=== PATIENT | male | born 1980 | race American Indian/Alaskan Native ===

== ENCOUNTER 2020-04-25 20:41 | Emergency (ER) | payer SELFPAY ==
[2020-04-25] MEDS ORDERED: DEXTROSE 50% IN WATER (25GM) 50 ML SYRINGE IV ONE ×4 (21:18→23:47)
[2020-04-25 21:38] LABS: Basophils # (Auto) 0.1 K/mm3 (0.0-0.1); Basophils % (Auto) 0.8 % (0.0-1.8); Eosinophils # (Auto) 0.3 K/mm3 (0.0-0.4); Eosinophils % (Auto) 1.8 % (0.0-4.3); Hematocrit 32.2 % (35.5-45.6); Hemoglobin 10.1 gm/dl (11.8-15.2); Lymphocytes % (Auto) 6.8 % (13.4-35.0); Mean Corpuscular HGB Conc 31 % (32-34); Mean Corpuscular Volume 91 fl (84-94); Monocytes # (Auto) 0.7 K/mm3 (0.0-0.8); Monocytes % (Auto) 5.2 % (0.0-7.3); Platelet Count 263 K/mm3 (140-440); Red Blood Count 3.54 M/mm3 (3.65-5.03)
[2020-04-25 21:44] LABS: Red Cell Distribution Width 23.5 % (13.2-15.2)
[2020-04-25 21:55] LABS: BUN/Creatinine Ratio 17; Blood Urea Nitrogen 22 mg/dL (9-20); Calcium 8.6 mg/dL (8.4-10.2); Hemolysis Index 19
[2020-04-25] MEDS ORDERED: D5W/0.9% NACL 1,000 ML IV SCH (22:00)
[2020-04-25] MEDS ORDERED: HYDROCORTISONE SOD SUCC 100 MG/2 ML VIAL IV ONE (22:29)
--- NOTE | 2020-04-25 22:35 | Emergency Department Report ---
ED General Adult HPI - General Chief complaint: Hypoglycemia Stated complaint: LOW BLOOD SUGAR Time Seen by Provider: 04/25/20 20:52 Source: EMS Mode of arrival: Stretcher Limitations: Altered Mental Status - History of Present Illness Initial comments: Patient is a 39-year-old F Egyptian male who is presenting with altered mental status low blood glucose. His blood glucose was noted to be 20 when paramedics arrived. Paramedics state that the patient was rambling incoherently and the family was poor historian but states that the patient was recently at [facility]. States he has some type of pancreatic tumor. Was unknown the patient's mental status baseline. Patient received D50 prior to arrival was brought the sugar up to 145. On arrival the patient was still babbling incoherently. In review of the patient's history by talking with a physician at [facility] the patient was there on April 03, 2020. He has a history of alcohol abuse diabetes but was diagnosed with adrenal insufficiency and a mass in the mesentery. 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 Patient left the hospital because he stated he was tired of waiting for results. Apparently the formal pathology report had not been resulted. Patient had numerous episodes of hypoglycemia and also acute kidney injury and adrenal insufficiency. - Related Data Allergies Allergy/AdvReac Type Severity Reaction Status Date / Time No Known Allergies Allergy Verified 04/25/20 21:50 ED Review of Systems ROS: Stated complaint: LOW BLOOD SUGAR Other details as noted in HPI Comment: Unobtainable due to pts medical conditions ED Past Medical Hx - Past Medical History Hx Diabetes: Yes Additional medical history: pancreatic mass - Surgical History Additional Surgical History: unable to assess - Social History Smoking Status: Unknown if ever smoked ED Physical Exam - General Limitations: Altered Mental Status General appearance: alert, other (Patient speaking clearly but answering things inappropriately) - Head Head exam: Present: atraumatic, normocephalic - Eye Eye exam: Present: normal appearance, PERRL, EOMI - ENT ENT exam: Present: mucous membranes moist - Neck Neck exam: Present: normal inspection - Respiratory Respiratory exam: Present: normal lung sounds bilaterally. Absent: respiratory distress, wheezes, rales, rhonchi - Cardiovascular Cardiovascular Exam: Present: regular rate, normal rhythm, normal heart sounds. Absent: systolic murmur, diastolic murmur, rubs, gallop - GI/Abdominal GI/Abdominal exam: Present: soft, normal bowel sounds. Absent: distended, tenderness, guarding - Rectal Rectal exam: Present: deferred - Extremities Exam Extremities exam: Present: normal inspection - Back Exam Back exam: Present: normal inspection - Neurological Exam Neurological exam: Present: alert, altered. Absent: motor sensory deficit - Psychiatric Psychiatric exam: Present: normal affect, normal mood - Skin Skin exam: Present: warm, dry, intact, normal color. Absent: rash ED Course Vital Signs 04/25/20 20:54 Temperature 98.2 F Pulse Rate 97 H Respiratory 18 Rate Blood Pressure 100/57 O2 Sat by Pulse 100 Oximetry ED Medical Decision Making - Lab Data Result diagrams: 04/25/20 21:15 04/25/20 21:15 Lab Results 04/25/20 04/25/20 04/25/20 Range/Units 21:15 21:15 21:18 WBC 14.1 H (4.5-11.0) K/mm3 RBC 3.54 L (3.65-5.03) M/mm3 Hgb 10.1 L (11.8-15.2) gm/dl Hct 32.2 L (35.5-45.6) % MCV 91 (84-94) fl MCH 29 (28-32) pg MCHC 31 L (32-34) % RDW 23.5 H (13.2-15.2) % Plt Count 263 (140-440) K/mm3 Lymph % (Auto) 6.8 L (13.4-35.0) % [place] % (Auto) 5.2 (0.0-7.3) % Eos % (Auto) 1.8 (0.0-4.3) % Baso % (Auto) 0.8 (0.0-1.8) % Lymph # (Auto) 1.0 L (1.2-5.4) K/mm3 [place] # (Auto) 0.7 (0.0-0.8) K/mm3 Eos # (Auto) 0.3 (0.0-0.4) K/mm3 Baso # (Auto) 0.1 (0.0-0.1) K/mm3 Seg Neutrophils % 85.4 H (40.0-70.0) % Seg Neutrophils # 12.0 H (1.8-7.7) K/mm3 Sodium 144 (137-145) mmol/L Potassium 3.2 L (3.6-5.0) mmol/L Chloride 115.6 H (98-107) mmol/L Carbon Dioxide 16 L (22-30) mmol/L Anion Gap 16 mmol/L BUN 22 H (9-20) mg/dL Creatinine 1.3 (0.8-1.3) mg/dL Estimated GFR > 60 ml/min BUN/Creatinine Ratio 17 % Glucose 52 L (75-100) mg/dL POC Glucose 45 L (70-105) mg/dL Calcium 8.6 (8.4-10.2) mg/dL 04/25/20 Range/Units 22:28 WBC (4.5-11.0) K/mm3 RBC (3.65-5.03) M/mm3 Hgb (11.8-15.2) gm/dl Hct (35.5-45.6) % MCV (84-94) fl MCH (28-32) pg MCHC (32-34) % RDW (13.2-15.2) % Plt Count (140-440) K/mm3 Lymph % (Auto) (13.4-35.0) % [place] % (Auto) (0.0-7.3) % Eos % (Auto) (0.0-4.3) % Baso % (Auto) (0.0-1.8) % Lymph # (Auto) (1.2-5.4) K/mm3 [place] # (Auto) (0.0-0.8) K/mm3 Eos # (Auto) (0.0-0.4) K/mm3 Baso # (Auto) (0.0-0.1) K/mm3 Seg Neutrophils % (40.0-70.0) % Seg Neutrophils # (1.8-7.7) K/mm3 Sodium (137-145) mmol/L Potassium (3.6-5.0) mmol/L Chloride (98-107) mmol/L Carbon Dioxide (22-30) mmol/L Anion Gap mmol/L BUN (9-20) mg/dL Creatinine (0.8-1.3) mg/dL Estimated GFR ml/min BUN/Creatinine Ratio % Glucose (75-100) mg/dL POC Glucose 50 L (70-105) mg/dL Calcium (8.4-10.2) mg/dL - Medical Decision Making Patient is required 3 doses of D50 between prior to the hospital and while here in our emergency department. Spoke with the hospitalist at [facility] and they states that they do also agree to be prudent to transfer the patient back to their facility to continue with his evaluation. Hospitalist is Dr. Horta. Patient be started on a D5 drip to try to regulate the patient is blood glucose. Patient given a dose of Solu-Cortef to help with the adrenal insufficiency. Critical Care Time: Yes (30) Critical care attestation.: If time is entered above; I have spent that time in minutes in the direct care of this critically ill patient, excluding procedure time. ED Disposition Clinical Impression: Hypoglycemia, Insulinoma, Adrenal insufficiency Disposition: DC/TX-70 ANOTHER TYPE HLTHCARE Is pt being admited?: No Does the pt Need Aspirin: No Condition: Stable Referrals: PRIMARY CARE, [Primary Care Provider] - 3-5 Days Time of Disposition: 22:36
[2020-04-25 23:48] VITALS: BP 97/71
[2020-04-26] MEDS ORDERED: DEXTROSE 50% IN WATER (25GM) 50 ML SYRINGE IV ONE (01:34)
== END 2020-04-26 01:50 | disposition other institution (70) ==
LOC: ED 20:41
DX: E16.2 Hypoglycemia, unspecified (principal); D13.7 Benign neoplasm of endocrine pancreas; E27.40 Unspecified adrenocortical insufficiency
CPT/HCPCS: 36415; 80048; 82962; 85025; 96365; 96366; 96375; 96376; 99285; J1720; J7042; 96374